=== PATIENT | female | born 1985 | race Caucasian/White ===

== ENCOUNTER 2021-01-09 07:55 | Emergency (ER) | payer OTHER, SELFPAY ==
[2021-01-09 08:43] VITALS: BP 128/69; PULSE 69; RESP 16; O2SAT 99; BMI 29.0
--- NOTE | 2021-01-09 08:59 | ED_ITS ---
HPI - Nausea/Vomiting/Diarrhea General Chief complaint: Nausea/Vomiting/Diarrhea Stated complaint: - vomiting Time Seen by Provider: 01/09/21 08:56 Source: patient Mode of arrival: ambulatory Limitations: no limitations History of Present Illness MD elicited complaint: nausea and vomiting Pertinent past history: other (+ preg at home, LMP 2 months ago) Onset (ago): week(s) (2) Description of vomiting: food contents Associated nausea: Yes Associated abdominal pain: No Severity: moderate Exacerbating factors: eating Relieving factors: none Context: other (+ test) Associated symptoms: denies other symptoms Related Data Previous Rx's Medication Instructions Recorded doxylamine succinate 25 mg tablet 25 mg PO BID PRN #60 tab 01/09/21 ondansetron 4 mg disintegrating 4 mg PO Q8H PRN #20 tab 01/09/21 tablet pyridoxine (vitamin B6) 25 mg 25 mg PO BID PRN #60 tab 01/09/21 tablet Allergies Allergy/AdvReac Type Severity Reaction Status Date / Time penicillin V Allergy Unknown Hives Verified 01/09/21 09:07 Review of Systems Review of Systems: Constitutional : No Weight loss, No Fever, No Chills ENT/Mouth : No sore throat, No Rhinorrhea Eyes: No Swelling, No Redness Cardiovascular : No Chest Pain, No SOB, NoEdema Respiratory : No Cough, No Sputum, No Wheezing Gastrointestinal : Positive Nausea, Positive Vomiting, no Diarrhea, no abdominal Pain, No Hematochezia, No Melena Genitourinary : No Dysuria, No Urinary Frequency, No Hematuria, No Urgency , no vag bleeding Musculoskeletal : No joint pain, No Myalgias, No Joint Swelling Skin : No Skin Lesions, No rash Neuro : No Weakness, No Numbness, No Dizziness, No Headache Psych : No Anxiety/Panic, No Depression Heme/Lymph: No Bruising, No Lymphadenopathy Endocrine : No Polyuria, No Polydipsia All other systems reviewed and are negative. Gastrointestinal: Gastrointestinal: Reports nausea PMFSH Past Medical History Attestation statement: The following information was validated with the patient. Medical History No known health problems Social History Social History (Updated 01/09/21 @ 09:30 by Josefa Olvera DO) Alcohol intake: unknown Patient Tobacco Use Status: Never used Tobacco Use of substances other than those prescribed or required for medical reasons: No Advance Directives: No Advance Directives Information Provided: No Patient : Yes Physical Exam Vital Signs: Vital Signs: Last Vital Signs Pulse 69 01/09/21 08:43 Resp 16 01/09/21 08:43 BP 128/69 01/09/21 08:43 Pulse Ox 99 01/09/21 08:43 Body Mass Index 29.0 Appearance: Alert. Oriented X3. No acute distress. Eyes: Pupils equal, round and reactive to light. ENT: Pharynx mild dry MM Neck: Normal inspection. Neck supple. CVS: Normal heart rate and rhythm. Pulses normal. Respiratory: No respiratory distress. Breath sounds normal. Abdomen: Soft and non-tender. Skin: Skin warm and dry. pale skin color. Normal skin turgor. Extremities: No lower extremity edema. No calf ttp Neuro: Oriented X 3. No motor deficit. No sensory deficit. Course Course Course Narrative: tolerated PO feels much better MDM - Nausea/Vomiting/Diarrhea MDM Narrative Medical decision making narrative: 35 yo female LMP 2 months ago pos test at home pos vomiting x 2 weeks - has not seen OB. At this time no OB complaints such as pain or bleeding. Will obtain labs, hydrate, IV anti emetics. Dispo per results and findings as well as PO trial Lab Data Result diagrams: 01/09/21 09:25 01/09/21 09:25 Labs: Lab Results 01/09/21 01/09/21 01/09/21 Range/Units 08:55 08:55 09:21 WBC (4.8-10.8) X10*3/uL RBC (4.20-5.50) X10*6/uL Hgb (12.0-16.0) g/dl Hct (37-47) % MCV (80-98) fL MCH (27.0-33.0) pg MCHC (31.0-35.0) g/dl RDW (11.0-16.0) % Plt Count (160-400) X10*3/uL MPV (9.4-12.3) fL Immature Gran % (Auto) (0.0-0.4) % Neut % (Auto) (45-73) % Lymph % (Auto) (20-40) % [place] % (Auto) (2-11) % Eos % (Auto) (0-4) % Baso % (Auto) (0-2) % Lymph # (Auto) (1.2-4.9) X10*3/uL [place] # (Auto) (0.1-1.2) X10*3/uL Eos # (Auto) (0.0-0.4) X10*3/uL Baso # (Auto) (0.0-0.2) X10*3/uL Abs Immat Gran (auto) (0.00-0.03) X10*3/uL Absolute Neuts (auto) (2.0-8.3) X10*3/uL Absolute Nucleated RBC (0.0-0.012) X10*3/uL Nucleated RBC % (auto) (0.0-0.2) /100WBC Sodium (135-145) mmol/L Potassium (3.3-5.1) mmol/L Chloride (96-108) mmol/L Carbon Dioxide (22-29) mmol/L Anion Gap (12-20) BUN (9-16) mg/dL Creatinine (0.5-1.4) mg/dL Estim Creat Clear Calc Estimated GFR Random Glucose (60-115) mg/dL Calcium (8.4-10.2) mg/dL Magnesium (1.6-2.6) mg/dL Total Bilirubin (0.0-1.0) mg/dL Direct Bilirubin (0.0-0.5) mg/dL AST (5-31) U/L ALT (0-31) U/L Alkaline Phosphatase (39-117) U/L Total Protein (6.5-8.0) g/dL Albumin (3.5-5.0) g/dL Lipase (8-78) U/L Beta HCG, Quant mIU/mL Urine Color YELLOW Urine Appearance CLOUDY Urine pH 6.0 (5.0-8.0) Ur Specific [place] >= 1.030 H (1.005-1.025) Urine Protein TRACE (NEG-TRACE) MG/DL Urine Glucose (UA) NEG (NEG) MG/DL Urine Ketones NEG (NEG) MG/DL Urine Blood TRACE (NEG) Urine Nitrite NEG (NEG) Ur Leukocyte Esterase NEG (NEG) Urine RBC 1-4 (0) /HPF Urine WBC 0-2 (0-4) /HPF Ur Squamous Epith Cells 3+ /LPF Urine Bacteria TRACE /LPF Urine Mucus 2+ /LPF Urine Test POSITIVE H (NEGATIVE) COVID-19 (MARY) Negative (Negative) COVID-19 Clin Com See Note 01/09/21 01/09/21 Range/Units 09:25 09:25 WBC 9.1 (4.8-10.8) X10*3/uL RBC 4.35 (4.20-5.50) X10*6/uL Hgb 12.8 (12.0-16.0) g/dl Hct 36.9 L (37-47) % MCV 84.8 (80-98) fL MCH 29.4 (27.0-33.0) pg MCHC 34.7 (31.0-35.0) g/dl RDW 13.6 (11.0-16.0) % Plt Count 193 (160-400) X10*3/uL MPV 10.6 (9.4-12.3) fL Immature Gran % (Auto) 0.2 (0.0-0.4) % Neut % (Auto) 74.3 H (45-73) % Lymph % (Auto) 18.7 L (20-40) % [place] % (Auto) 6.6 (2-11) % Eos % (Auto) 0.0 (0-4) % Baso % (Auto) 0.2 (0-2) % Lymph # (Auto) 1.7 (1.2-4.9) X10*3/uL [place] # (Auto) 0.6 (0.1-1.2) X10*3/uL Eos # (Auto) 0.0 (0.0-0.4) X10*3/uL Baso # (Auto) 0.0 (0.0-0.2) X10*3/uL Abs Immat Gran (auto) 0.02 (0.00-0.03) X10*3/uL Absolute Neuts (auto) 6.7 (2.0-8.3) X10*3/uL Absolute Nucleated RBC 0.000 (0.0-0.012) X10*3/uL Nucleated RBC % (auto) 0.0 (0.0-0.2) /100WBC Sodium 137 (135-145) mmol/L Potassium 4.0 (3.3-5.1) mmol/L Chloride 105 (96-108) mmol/L Carbon Dioxide 23 (22-29) mmol/L Anion Gap 13 (12-20) BUN 7 L (9-16) mg/dL Creatinine 0.68 (0.5-1.4) mg/dL Estim Creat Clear Calc 126.1 Estimated GFR > 60 Random Glucose 108 (60-115) mg/dL Calcium 10.2 (8.4-10.2) mg/dL Magnesium 1.9 (1.6-2.6) mg/dL Total Bilirubin 1.3 H (0.0-1.0) mg/dL Direct Bilirubin 0.4 (0.0-0.5) mg/dL AST 18 (5-31) U/L ALT 17 (0-31) U/L Alkaline Phosphatase 70 (39-117) U/L Total Protein 7.7 (6.5-8.0) g/dL Albumin 4.6 (3.5-5.0) g/dL Lipase 27 (8-78) U/L Beta HCG, Quant [id number] mIU/mL Urine Color Urine Appearance Urine pH (5.0-8.0) Ur Specific [place] (1.005-1.025) Urine Protein (NEG-TRACE) MG/DL Urine Glucose (UA) (NEG) MG/DL Urine Ketones (NEG) MG/DL Urine Blood (NEG) Urine Nitrite (NEG) Ur Leukocyte Esterase (NEG) Urine RBC (0) /HPF Urine WBC (0-4) /HPF Ur Squamous Epith Cells /LPF Urine Bacteria /LPF Urine Mucus /LPF Urine Test (NEGATIVE) COVID-19 (MARY) (Negative) COVID-19 Clin Com Discharge Plan Discharge Clinical Impression: Hyperemesis gravidarum Patient Disposition: Home, Self-Care Instructions: Hyperemesis Gravidarum (ED) Additional Instructions: return to ED for any worsening symptoms or concerns based off levels suspect you are around 6 weeks please call your OBGYN, take vitamins 1st line for nausea and vomiting is B6 and doxylamine then zofran then suppositories Prescriptions: New pyridoxine (vitamin B6) 25 mg tablet 25 mg PO BID PRN (Reason: nausea and vomiting) Qty: 60 RF: 0 doxylamine succinate 25 mg tablet 25 mg PO BID PRN (Reason: vomiting) Qty: 60 RF: 0 ondansetron 4 mg tablet,disintegrating 4 mg PO Q8H PRN (Reason: nausea and vomiting) Qty: 20 RF: 0 Stand Alone Forms: Work/School Release
[2021-01-09 09:05] LABS: Appearance Urine CLOUDY; Color Urine YELLOW; Glucose Urine UA NEG (NEG); Leukocyte Esterase Urine NEG (NEG); Nitrite Urine NEG (NEG); Specific Gravity - Urine >= 1.030 (1.005-1.025); UACC Culture Trigger NO; UPreg QC Valid YES; Urine Blood TRACE (NEG); Urine Ketones NEG (NEG); Urine Pregnancy POSITIVE (NEGATIVE); Urine Protein TRACE MG/DL (NEG-TRACE)
[2021-01-09 09:11] LABS: Bacteria Urine TRACE /LPF; Mucus Urine 2+ /LPF; Squamous Epithelial Cell Urine 3+ /LPF; WBC Urine 0-2 /HPF (0-4)
[2021-01-09 09:32] LABS: MANUAL DIFF FLAG NO
[2021-01-09 09:34] LABS: Basophils Percent Auto 0.2 % (0-2); Hematocrit 36.9 % (37-47); Hemoglobin 12.8 g/dl (12.0-16.0); Imm Gran Abs Auto 0.02 X10*3/uL (0.00-0.03); Imm Gran Pct Auto 0.2 % (0.0-0.4); Lymphocytes Absolute Auto 1.7 X10*3/uL (1.2-4.9); Lymphocytes Percent Auto 18.7 % (20-40); Mean Corpuscular HGB Conc 34.7 g/dl (31.0-35.0); Mean Corpuscular Hemoglobin 29.4 pg (27.0-33.0); Mean Corpuscular Volume 84.8 fL (80-98); Mean Platelet Volume 10.6 fL (9.4-12.3); Monocytes Absolute Auto 0.6 X10*3/uL (0.1-1.2); Monocytes Percent Auto 6.6 % (2-11); Neutrophils Absolute Auto 6.7 X10*3/uL (2.0-8.3); Neutrophils Percent Auto 74.3 % (45-73); Platelet Count 193 X10*3/uL (160-400); Red Blood Count 4.35 X10*6/uL (4.20-5.50); Red Cell Distribution Width 13.6 % (11.0-16.0); White Blood Count 9.1 X10*3/uL (4.8-10.8)
[2021-01-09] MEDS: Lactated Ringers 1,000 ML 999 ML IV (09:35)
[2021-01-09] MEDS: Metoclopramide HCl 10 MG/2 ML VIAL 5 MG IVPUSH (09:35)
[2021-01-09] MEDS: diphenhydrAMINE HCL 50 MG/ML VIAL 25 MG IVPUSH (09:36)
[2021-01-09 10:01] LABS: COVID-19 Test Negative (Negative)
[2021-01-09 10:10] LABS: Alanine Aminotransferase 17 U/L (0-31); Albumin Level 4.6 g/dL (3.5-5.0); Alkaline Phosphatase 70 U/L (39-117); Anion Gap 13 (12-20); Aspartate Amino Transferase 18 U/L (5-31); Bilirubin Direct 0.4 mg/dL (0.0-0.5); Bilirubin Total 1.3 mg/dL (0.0-1.0); Blood Urea Nitrogen 7 mg/dL (9-16); Calcium 10.2 mg/dL (8.4-10.2); Carbon Dioxide 23 mmol/L (22-29); Chloride 105 mmol/L (96-108); Creatinine Clr Calc Pharmacy 126.1; Estimated Glomerular Filt Rate > 60; Glucose Random 108 mg/dL (60-115); Lipase 27 U/L (8-78); Magnesium 1.9 mg/dL (1.6-2.6); Sodium 137 mmol/L (135-145); Total Protein 7.7 g/dL (6.5-8.0)
== END 2021-01-09 11:46 | disposition home or self-care (01) ==
PROVIDERS: Emergency Provider Emergency Medicine
DX: O21.0 Mild hyperemesis gravidarum (principal); Z3A.08 8 weeks gestation of pregnancy; Z79.899 Other long term (current) drug therapy; Z20.822 Contact with and (suspected) exposure to COVID-19
CPT/HCPCS: 36415; 80048; 80076; 81001; 81003; 81025; 83690; 83735; 84702; 85025; 87635; 96361; 96374; 96375; 99284; J1200; J2765

== ENCOUNTER 2021-01-10 13:39 | Emergency (ER) | payer OTHER, SELFPAY ==
--- NOTE | ~2021-01-10 | US_ITS ---
EXAMINATION: US OBSTETRICAL ULTRASOUND CLINICAL INFORMATION: Pain. Positive test. Quant suggests at least 7 weeks. LMP unknown. COMPARISON: None. TECHNIQUE: Ultrasound of the maternal pelvis is performed using transabdominal transducer. M-mode Doppler is also performed. FINDINGS: There is a single intrauterine gestational sac with embryo and cardiac activity. No subchorionic hemorrhage or hematoma demonstrated. Yolk sac not seen. HR: 155 beats per minute. CRL (crown rump length): 6.7 cm (13 weeks 1 day +/- 4 days). ARABELLA (estimated date of delivery): 07/17/2021 +/- 4 days. MATERNAL ADNEXA: The right maternal ovary is not visualized. The left maternal ovary measures 2.8 x 1.4 x 1.9 cm. No maternal pelvic ascites. No maternal pelvic mass demonstrated. US/US OB <= 14 weeks fetus IMPRESSION: 1. Single intrauterine gestation with ultrasound gestational age of 13 weeks 1 day +/- 4 days. 2. Estimated date of delivery is 07/17/2021 +/- 4 days. 3. No visible maternal adnexal mass or pelvic ascites. Right maternal ovary not visualized.
[2021-01-10 13:41] VITALS: BP 113/70; PULSE 84; RESP 18; TEMP 37; O2SAT 98; BMI 29.2
--- NOTE | 2021-01-10 14:30 | ED.NAVMDI ---
HPI - Nausea/Vomiting/Diarrhea General Chief complaint: Nausea/Vomiting/Diarrhea Stated complaint: vomiting, diarrhea Time Seen by Provider: 01/10/21 14:28 Source: patient Mode of arrival: ambulatory Limitations: no limitations History of Present Illness HPI Narrative: 35 yo female seen yesterday for n/v + test did not have abdominal pain yesterday comes back today states she tried all the medications they made her more nauseated and then she has had severe diarrhea all night no recent abx, now has lower abdominal pain too which is new MD elicited complaint: nausea, vomiting, diarrhea and abdominal pain Pertinent past history: other (+ test) Onset (ago): day(s) (started last night) Description of vomiting: watery Description of diarrhea: mucus and watery Associated nausea: Yes Associated abdominal pain: Yes Location of pain: suprapubic Radiation: diffuse Pain consistency: intermittent Severity: mild Quality: cramping Exacerbating factors: other (new medications) Relieving factors: none Context: new medication Associated symptoms: loss of appetite, malaise and nausea/vomiting Related Data Previous Rx's Medication Instructions Recorded doxylamine succinate 25 mg tablet 25 mg PO BID PRN #60 tab 01/09/21 ondansetron 4 mg disintegrating 4 mg PO Q8H PRN #20 tab 01/09/21 tablet pyridoxine (vitamin B6) 25 mg 25 mg PO BID PRN #60 tab 01/09/21 tablet metoclopramide HCl 10 mg tablet 10 mg PO Q6H PRN #30 tab 01/10/21 (Reglan) promethazine 25 mg rectal 25 mg SD Q6H PRN #12 ea 01/10/21 suppository Allergies Allergy/AdvReac Type Severity Reaction Status Date / Time penicillin V Allergy Unknown Hives Verified 01/10/21 13:40 Review of Systems Review of Systems: Constitutional : No Weight loss, No Fever, No Chills ENT/Mouth : No sore throat, No Rhinorrhea Eyes: No Swelling, No Redness Cardiovascular : No Chest Pain, No SOB, NoEdema Respiratory : No Cough, No Sputum, No Wheezing Gastrointestinal : Positive Nausea, Positive Vomiting, positive Diarrhea, positive abdominal Pain, No Hematochezia, No Melena Genitourinary : No Dysuria, No Urinary Frequency, No Hematuria, No Urgency Musculoskeletal : No joint pain, No Myalgias, No Joint Swelling Skin : No Skin Lesions, No rash Neuro : No Weakness, No Numbness, No Dizziness, No Headache Psych : No Anxiety/Panic, No Depression Heme/Lymph: No Bruising, No Lymphadenopathy Endocrine : No Polyuria, No Polydipsia All other systems reviewed and are negative. Gastrointestinal: Gastrointestinal: Reports nausea PMFSH Past Medical History Attestation statement: The following information was validated with the patient. Medical History No known health problems Social History Social History Alcohol intake: former Patient Tobacco Use Status: Never used Tobacco Use of substances other than those prescribed or required for medical reasons: No Advance Directives: No Advance Directives Information Provided: No Patient : Yes Physical Exam Vital Signs: Vital Signs: Last Vital Signs Temp 98 F 01/10/21 15:13 Pulse 75 01/10/21 15:13 Resp 18 01/10/21 15:13 BP 111/71 01/10/21 15:13 Pulse Ox 98 01/10/21 15:13 Body Mass Index 29.2 Appearance: Alert. Oriented X3. No acute distress. Eyes: Pupils equal, round and reactive to light. ENT: Pharynx normal. Neck: Normal inspection. Neck supple. CVS: Normal heart rate and rhythm. Pulses normal. Respiratory: No respiratory distress. Breath sounds normal. Abdomen: Soft and mild suprapubic ttp no rebound or guarding Skin: Skin warm and dry. Normal skin color. Normal skin turgor. Extremities: No lower extremity edema. No calf ttp Neuro: Oriented X 3. No motor deficit. No sensory deficit. Course Course Course Narrative: signed out pending improvement - feels much better - Dr. Reyes MDM - Nausea/Vomiting/Diarrhea MDM Narrative Medical decision making narrative: 35 yo female with new about 6 weeks based off labs and LMP 2 months ago comes back with persistent n/v as well as new diarrhea and lower abdominal pain after starting new B6/doxylamine/zofran - at this time labs, IVF, stool studies, anti emetics, US to evaluate dispo per results and findings Lab Data Result diagrams: 01/10/21 15:29 01/10/21 15:29 Labs: Lab Results 0901/10/21 01/10/21 Range/Units 15:29 15:29 15:29 WBC 9.2 (4.8-10.8) X10*3/uL RBC 4.17 L (4.20-5.50) X10*6/uL Hgb 12.3 (12.0-16.0) g/dl Hct 35.5 L (37-47) % MCV 85.1 (80-98) fL MCH 29.5 (27.0-33.0) pg MCHC 34.6 (31.0-35.0) g/dl RDW 13.7 (11.0-16.0) % Plt Count 188 (160-400) X10*3/uL MPV 10.7 (9.4-12.3) fL Immature Gran % (Auto) 0.3 (0.0-0.4) % Neut % (Auto) 74.0 H (45-73) % Lymph % (Auto) 18.4 L (20-40) % [place] % (Auto) 7.2 (2-11) % Eos % (Auto) 0.0 (0-4) % Baso % (Auto) 0.1 (0-2) % Lymph # (Auto) 1.7 (1.2-4.9) X10*3/uL [place] # (Auto) 0.7 (0.1-1.2) X10*3/uL Eos # (Auto) 0.0 (0.0-0.4) X10*3/uL Baso # (Auto) 0.0 (0.0-0.2) X10*3/uL Abs Immat Gran (auto) 0.03 (0.00-0.03) X10*3/uL Absolute Neuts (auto) 6.8 (2.0-8.3) X10*3/uL Absolute Nucleated RBC 0.000 (0.0-0.012) X10*3/uL Nucleated RBC % (auto) 0.0 (0.0-0.2) /100WBC Sodium 137 (135-145) mmol/L Potassium 3.6 (3.3-5.1) mmol/L Chloride 106 (96-108) mmol/L Carbon Dioxide 24 (22-29) mmol/L Anion Gap 11 L (12-20) BUN 7 L (9-16) mg/dL Creatinine 0.73 (0.5-1.4) mg/dL Estim Creat Clear Calc 118.1 Estimated GFR > 60 Random Glucose 103 (60-115) mg/dL Lactic Acid (0.5-2.0) mmol/L Calcium 9.5 D (8.4-10.2) mg/dL Magnesium 2.0 (1.6-2.6) mg/dL Total Bilirubin 1.2 H (0.0-1.0) mg/dL Direct Bilirubin 0.3 (0.0-0.5) mg/dL AST 20 (5-31) U/L ALT 14 (0-31) U/L Alkaline Phosphatase 67 (39-117) U/L Total Protein 7.2 (6.5-8.0) g/dL Albumin 4.2 (3.5-5.0) g/dL Lipase 52 (8-78) U/L 01/10/21 Range/Units 15:29 WBC (4.8-10.8) X10*3/uL RBC (4.20-5.50) X10*6/uL Hgb (12.0-16.0) g/dl Hct (37-47) % MCV (80-98) fL MCH (27.0-33.0) pg MCHC (31.0-35.0) g/dl RDW (11.0-16.0) % Plt Count (160-400) X10*3/uL MPV (9.4-12.3) fL Immature Gran % (Auto) (0.0-0.4) % Neut % (Auto) (45-73) % Lymph % (Auto) (20-40) % [place] % (Auto) (2-11) % Eos % (Auto) (0-4) % Baso % (Auto) (0-2) % Lymph # (Auto) (1.2-4.9) X10*3/uL [place] # (Auto) (0.1-1.2) X10*3/uL Eos # (Auto) (0.0-0.4) X10*3/uL Baso # (Auto) (0.0-0.2) X10*3/uL Abs Immat Gran (auto) (0.00-0.03) X10*3/uL Absolute Neuts (auto) (2.0-8.3) X10*3/uL Absolute Nucleated RBC (0.0-0.012) X10*3/uL Nucleated RBC % (auto) (0.0-0.2) /100WBC Sodium (135-145) mmol/L Potassium (3.3-5.1) mmol/L Chloride (96-108) mmol/L Carbon Dioxide (22-29) mmol/L Anion Gap (12-20) BUN (9-16) mg/dL Creatinine (0.5-1.4) mg/dL Estim Creat Clear Calc Estimated GFR Random Glucose (60-115) mg/dL Lactic Acid 1.0 (0.5-2.0) mmol/L Calcium (8.4-10.2) mg/dL Magnesium (1.6-2.6) mg/dL Total Bilirubin (0.0-1.0) mg/dL Direct Bilirubin (0.0-0.5) mg/dL AST (5-31) U/L ALT (0-31) U/L Alkaline Phosphatase (39-117) U/L Total Protein (6.5-8.0) g/dL Albumin (3.5-5.0) g/dL Lipase (8-78) U/L Discharge Plan Discharge Clinical Impression: Hyperemesis gravidarum, Diarrhea Instructions: Hyperemesis Gravidarum (ED), Acute Diarrhea (ED) Additional Instructions: return to ED for any worsening symptoms or concerns stop taking B6 pyridoxine, ondansetron, doxylamine avoid dairy for 3 days only take suppositories if the pills are not working Prescriptions: New metoclopramide HCl [Reglan] 10 mg tablet 10 mg PO Q6H PRN (Reason: nausea and vomiting) Qty: 30 RF: 0 promethazine 25 mg suppository 25 mg SD Q6H PRN (Reason: nausea and vomiting) Qty: 12 RF: 0 No Action pyridoxine (vitamin B6) 25 mg tablet 25 mg PO BID PRN (Reason: nausea and vomiting) Qty: 60 RF: 0 doxylamine succinate 25 mg tablet 25 mg PO BID PRN (Reason: vomiting) Qty: 60 RF: 0 ondansetron 4 mg tablet,disintegrating 4 mg PO Q8H PRN (Reason: nausea and vomiting) Qty: 20 RF: 0 Stand Alone Forms: Work/School Release
[2021-01-10 15:13] VITALS: BP 111/71; PULSE 75; RESP 18; TEMP 36.6; O2SAT 98
[2021-01-10] MEDS: diphenhydrAMINE HCL 50 MG/ML VIAL 25 MG IVPUSH (15:29)
[2021-01-10] MEDS: Lactated Ringers 1,000 ML 999 ML IV (15:30)
[2021-01-10 15:33] LABS: MANUAL DIFF FLAG NO
[2021-01-10] MEDS: Metoclopramide HCl 10 MG/2 ML VIAL IVPUSH (15:33)
[2021-01-10 15:34] LABS: Basophils Percent Auto 0.1 % (0-2); Hematocrit 35.5 % (37-47); Hemoglobin 12.3 g/dl (12.0-16.0); Imm Gran Abs Auto 0.03 X10*3/uL (0.00-0.03); Imm Gran Pct Auto 0.3 % (0.0-0.4); Lymphocytes Absolute Auto 1.7 X10*3/uL (1.2-4.9); Lymphocytes Percent Auto 18.4 % (20-40); Mean Corpuscular HGB Conc 34.6 g/dl (31.0-35.0); Mean Corpuscular Hemoglobin 29.5 pg (27.0-33.0); Mean Corpuscular Volume 85.1 fL (80-98); Mean Platelet Volume 10.7 fL (9.4-12.3); Monocytes Absolute Auto 0.7 X10*3/uL (0.1-1.2); Monocytes Percent Auto 7.2 % (2-11); Neutrophils Absolute Auto 6.8 X10*3/uL (2.0-8.3); Platelet Count 188 X10*3/uL (160-400); Red Blood Count 4.17 X10*6/uL (4.20-5.50); Red Cell Distribution Width 13.7 % (11.0-16.0); White Blood Count 9.2 X10*3/uL (4.8-10.8)
[2021-01-10 15:50] LABS: Anion Gap 11 (12-20); Blood Urea Nitrogen 7 mg/dL (9-16); Calcium 9.5 mg/dL (8.4-10.2); Carbon Dioxide 24 mmol/L (22-29); Chloride 106 mmol/L (96-108); Creatinine Clr Calc Pharmacy 118.1; Estimated Glomerular Filt Rate > 60; Glucose Random 103 mg/dL (60-115); Potassium 3.6 mmol/L (3.3-5.1); Sodium 137 mmol/L (135-145)
[2021-01-10 15:59] LABS: Alanine Aminotransferase 14 U/L (0-31); Albumin Level 4.2 g/dL (3.5-5.0); Alkaline Phosphatase 67 U/L (39-117); Aspartate Amino Transferase 20 U/L (5-31); Bilirubin Direct 0.3 mg/dL (0.0-0.5); Bilirubin Total 1.2 mg/dL (0.0-1.0); Lipase 52 U/L (8-78); Total Protein 7.2 g/dL (6.5-8.0)
[2021-01-10 16:25] VITALS: BP 106/62; PULSE 70; RESP 16; TEMP 36.8; O2SAT 100
[2021-01-10 16:34] LABS: Appearance Urine HAZY; Color Urine YELLOW; Glucose Urine UA NEG (NEG); Leukocyte Esterase Urine NEG (NEG); Nitrite Urine NEG (NEG); Specific Gravity - Urine >= 1.030 (1.005-1.025); UACC Culture Trigger NO; Urine Blood TRACE (NEG); Urine Ketones 5 MG/DL (NEG); Urine Protein TRACE MG/DL (NEG-TRACE)
[2021-01-10 16:43] LABS: Bacteria Urine 1+ /LPF; Calcium Oxalate Crystals Urine TRACE /LPF; Squamous Epithelial Cell Urine 1+ /LPF; WBC Urine 0 /HPF (0-4)
[2021-01-10 16:44] LABS: Mucus Urine 1+ /LPF
== END 2021-01-10 17:12 | disposition home or self-care (01) ==
PROVIDERS: Emergency Medicine; Emergency Provider Emergency Medicine Emergency Medical Services
DX: O21.0 Mild hyperemesis gravidarum (principal); R19.7 Diarrhea, unspecified; Z3A.13 13 weeks gestation of pregnancy
CPT/HCPCS: 36415; 76801; 80048; 80076; 81001; 83605; 83690; 83735; 85025; 96361; 96374; 96375; 99284; J1200; J2765

== ENCOUNTER → 2021-01-16 09:59 | Outpatient (BNVA) | payer OTHER, SELFPAY | PROVIDERS: Visit Provider Obstetrics & Gynecology | DX: O09.521 Supervision of elderly multigravida, first trimester (principal); Z3A.14 14 weeks gestation of pregnancy | CPT/HCPCS: 99212 ==

== ENCOUNTER 2021-01-18 10:39 | Outpatient (REF) | payer OTHER, SELFPAY ==
--- NOTE | ~2021-01-18 | US_ITS ---
EXAMINATION: OBSTETRICAL ULTRASOUND, FIRST TRIMESTER HISTORY: A 35-year-old at 14 weeks of gestation AMA NT screening COMPARISON: 01/10/2021 TECHNIQUE: Real time transabdominal imaging with color and M-mode Doppler. FINDINGS: A single, live IUP CRL of 82.1 mm c/w 14.2wks is noted. Heart Rate: 160 beats per minute. Normal yolk sac seen. NT was 0.98.mm. NB Present The embryo appears sonographically wnl for this GA. Both maternal ovaries are seen and appear normal. GESTATIONAL AGE: 1. Established GA: 14.2 wks 2. GA from [facility]: 14.2 wks ESTIMATED DATE OF DELIVERY: 1. Established ARABELLA: 07/17/2021 2. ARABELLA from [facility]: 07/17/2021 US/US OB 1T nuc measure IMPRESSION: 1. A single live IUP 2. Size equals dates 3. NT of 0.98 mm MFM Consultation: I reviewed the ultrasound findings along with significance of NT measurement. The NT of less than 3mm is generally reassuring. However, the sensitivity for T21 detection is only 60%. I reviewed the availability of serum aneuploidy screening which includes cell-free DNA and placental protein based tests. I discussed the sensitivity, false-positive rate, and other limitations associated with each test. I also reviewed the availability of invasive diagnostic tests that are associated small but definite risk of miscarriage. We also reviewed the differences between screening tests and diagnostic tests. After our discussion, she opted for the First trimester screening that is based on cell-free DNA or non-invasive testing (NIPT). The result will be faxed to your office in approximately 7 days. A follow up at 18 weeks for survey has been scheduled. Thank you very much for this referral. Total time 30 minutes. The time spent was devoted to counseling the patient about the disease and diagnosis, coordinating care including reviewing her records, pertinent lab data and studies, as well as discussing diagnostic evaluation and workup, plan therapeutic interventions and future disposition of care. This includes any additional research needed to obtain further information in formulating the plan of care of this patient. This note was generated with a voice recognition program. Please excuse any errors which may have been overlooked during my review of this note. Sometimes these errors may affect the content or meaning of a given sentence.
== END 2021-01-18 10:40 | disposition home or self-care (01) ==
LOC: HO.US 10:39
PROVIDERS: Visit Provider Obstetrics & Gynecology
DX: O09.512 Supervision of elderly primigravida, second trimester (principal)
CPT/HCPCS: 76813

== ENCOUNTER → 2021-01-25 13:58 | Outpatient (BNVA) | payer OTHER, SELFPAY | PROVIDERS: Visit Provider Obstetrics & Gynecology | DX: O99.342 Other mental disorders complicating pregnancy, second trimester (principal); F41.8 Other specified anxiety disorders; Z3A.15 15 weeks gestation of pregnancy | CPT/HCPCS: 99212 ==

== ENCOUNTER 2021-02-18 13:43 | Outpatient (REF) | payer OTHER, SELFPAY ==
[2021-02-19 02:33] LABS: CT PCR NOT DETECTED (Not Detect.); NG PCR NOT DETECTED (Not Detect.)
[2021-02-19 09:25] LABS: BV Int Neg Control Negative (Negative); BV Int Pos Control Positive (Positive)
[2021-02-20 15:51] LABS: HPV mRNA E6/E7 rflx Not Detected (Not Detected)
== END 2021-02-18 13:44 | disposition home or self-care (01) ==
LOC: HO.LAB 13:43
PROVIDERS: Visit Provider Advanced Practice Midwife
DX: O09.522 Supervision of elderly multigravida, second trimester (principal); O99.342 Other mental disorders complicating pregnancy, second trimester; O09.292 Supervision of pregnancy with other poor reproductive or obstetric history, second trimester; O26.892 Other specified pregnancy related conditions, second trimester; N89.8 Other specified noninflammatory disorders of vagina; F32.A Depression, unspecified; Z3A.18 18 weeks gestation of pregnancy; Z20.2 Contact with and (suspected) exposure to infections with a predominantly sexual mode of transmission
CPT/HCPCS: 81003; 87480; 87491; 87510; 87591; 87624; 87660; 88142; 99212

== ENCOUNTER 2021-02-22 12:59 | Outpatient (REF) | payer OTHER, SELFPAY ==
--- NOTE | ~2021-02-22 | US_ITS ---
EXAMINATION: US OBSTETRICAL CLINICAL INFORMATION: 35-year-old at the 19.2 weeks of gestation Screening for anomaly A COMPARISON: 01/18/2021 TECHNIQUE: Real-time transabdominal ultrasound was performed using C1-5 megahertz transducer. FINDINGS: A single, active, fetus is seen in vertex presentation. The placenta is posterior without previa, and the amniotic fluid volume is wnl. MEASUREMENTS: 1. Biparietal Diameter: 4.0 cm; 19.2 wks 2. Occipital Frontal Diameter: 5.76 cm 3. Head Circumference: 16.2 cm; 19.0 wks 4. Abdominal Circumference: 14.1 cm; 19.4 wks 5. Femur Length: 3.1 cm; 19.5 wks 6. Humerus Length: 2.85 cm; 19.2 wks 7. Tibia Length: 0.5 cm; 18.6 wks 8. Ulna Length: 2.7 cm; 20.0 wks 9. Lateral ventricle: 0.6 cm 10. Cerebellum: 2.1 cm; 21.1 wks 11. Cisterna Magna: 0.35 cm 12. Nuchal Fold: 2.65 mm 13. Heart Rate: 138 beats per minute Rt ovary: Unable to visualize Lt ovary: normal Cervical length 3.2 cm on T/A. GESTATIONAL AGE: 1. Established GA: 19.2 wks 2. GA from [facility]: 19.1 wks ESTIMATED DATE OF DELIVERY: 1. Established ARABELLA: 07/17/2021 2. ARABELLA from [facility]: 07/18/2021 ANATOMY: The visualized anatomy includes but not limited to: 1. Cranium: Normal 2. Intracranial anatomy: cavum septum pellucidi, lateral ventricles, choroid plexus, cerebellum, posterior fossa, third and fourth ventricles. 3. face: orbits, lip/palate, profile, nasal bone 4. Heart: four-chamber view of the heart, ventricular septum, foramen ovale, pulmonary vein, left and right outflow tracts, three-vessel view, 3 vessel trachea view, aortic and ductal arches, situs.. 5. Diaphragm: Normal 6. Abdominal wall: Normal 7. Cord Insertion: Normal 8. Spine: Cervical, thoracic, lumbar, sacral. 9. Stomach: Normal size and shape 10. Right Kidney: Normal 11. Left Kidney: Normal 12. 3 vessel cord: Normal 13. Upper extremity: Open hands, fifth digit. 14. Lower extremity: Tibia, fibula, bilateral feet. 15. Bladder: Normal 16. Genitalia: Female, patient aware US/US OB /maternal detail IMPRESSION: 1. Single, living, intrauterine with appropriate biometry. 2. Normal survey DISCUSSION: I reviewed today's ultrasound findings. We discussed the limitations of ultrasound in diagnosing aneuploidy and other congenital abnormalities. I reviewed the differences between screening test and diagnostic test. Amniocentesis was discussed and declined. She was informed that the baseline incidence of congenital abnormalities is approximately 3-5%. Not all these conditions are diagnosable in utero. RECOMMENDATIONS: 1. Follow-up when necessary Thank you for allowing me to participate in her care. Total time 30 minutes. The time spent was devoted to counseling the patient about the disease and diagnosis, coordinating care including reviewing her records, pertinent lab data and studies, as well as discussing diagnostic evaluation and workup, plan therapeutic interventions and future disposition of care. This includes any additional research needed to obtain further information in formulating the plan of care of this patient. This note was generated with a voice recognition program. Please excuse any errors which may have been overlooked during my review of this note. Sometimes these errors may affect the content or meaning of a given sentence.
[2021-02-22 15:23] LABS: Alanine Aminotransferase 11 U/L (0-31); Aspartate Amino Transferase 14 U/L (5-31); Blood Urea Nitrogen 9 mg/dL (9-16)
[2021-02-22 15:46] LABS: Creatinine Urine 114.49 mg/dL; Total Protein Urine Random < 7 mg/dL (<12)
== END 2021-02-22 13:00 | disposition home or self-care (01) ==
LOC: HO.US 12:59
PROVIDERS: Advanced Practice Midwife; Visit Provider Obstetrics & Gynecology
DX: Z36.89 Encounter for other specified antenatal screening (principal); O09.522 Supervision of elderly multigravida, second trimester; O09.292 Supervision of pregnancy with other poor reproductive or obstetric history, second trimester; Z3A.19 19 weeks gestation of pregnancy
CPT/HCPCS: 36415; 76811; 84156; 84450; 84460; 84520

== ENCOUNTER 2021-03-14 11:34 | Outpatient (REF) | payer OTHER, SELFPAY ==
[2021-03-14 13:16] LABS: Barbiturates, Urine Not Detected (Not Detect); Benzodiazepines Screen Urine Not Detected (Not Detect); Cannabinoid Screen Urine Not Detected (Not Detect); Cocaine Screen Urine Not Detected (Not Detect); Fentanyl, urine Not Detected (Not Detect); Opiate Screen Urine Not Detected (Not Detect); Phencyclidine Screen Urine Not Detected (Not Detect)
[2021-03-14 13:19] LABS: Amphetamine Screen Urine Not Detected (Not Detect)
[2021-03-14 13:28] LABS: Hematocrit 31.8 % (37.0-47.0); Mean Corpuscular HGB Conc 34.6 g/dl (31.0-35.0); Mean Corpuscular Hemoglobin 31.8 pg (27.0-33.0); Mean Corpuscular Volume 91.9 fL (80.0-98.0); Platelet Count 179 X10*3/uL (160-400); Red Blood Count 3.46 X10*6/uL (4.20-5.50); Red Cell Distribution Width 15.4 % (11.0-16.0); White Blood Count 9.1 X10*3/uL (4.8-10.8)
[2021-03-14 13:41] LABS: Glucose 1 Hour PP 50gm Dose 158 mg/dL (60-140)
[2021-03-15 08:36] LABS: Syphilis Screen Nonreactive (Nonreactive)
[2021-03-15 08:42] LABS: Rubella IgG Antibody 3.61 Index
[2021-03-15 09:00] LABS: HBsAGNum1 0.16 S/CO (0.00-0.99); Hepatitis B Surface Antigen Negative (Negative); ~HepC Num1 0.07 S/CO (0.00-0.79); ~Hepatitis C Antibody Nonreactive (Nonreactive)
[2021-03-15 09:23] LABS: HIV AB/AG Nonreactive (Nonreactive); HIV Num 1 0.11 S/CO (0.00-0.99)
== END 2021-03-14 11:35 | disposition home or self-care (01) ==
LOC: HO.LAB 11:34
PROVIDERS: Visit Provider Obstetrics & Gynecology
DX: O09.529 Supervision of elderly multigravida, unspecified trimester (principal); O99.810 Abnormal glucose complicating pregnancy
CPT/HCPCS: 80307; 85027; 86762; 86780; 86787; 86803; 86850; 86900; 86901; 87086; 87340; 87389

== ENCOUNTER → 2021-03-18 13:06 | Outpatient (BNVA) | payer OTHER, SELFPAY | PROVIDERS: Visit Provider Advanced Practice Midwife | DX: O09.522 Supervision of elderly multigravida, second trimester (principal); O09.292 Supervision of pregnancy with other poor reproductive or obstetric history, second trimester; O99.810 Abnormal glucose complicating pregnancy; R73.09 Other abnormal glucose; O99.212 Obesity complicating pregnancy, second trimester; E66.9 Obesity, unspecified; Z3A.22 22 weeks gestation of pregnancy | CPT/HCPCS: 81003; 99212 ==

== ENCOUNTER 2021-03-19 10:44 | Outpatient (REF) | payer OTHER, SELFPAY ==
[2021-03-19 11:50] LABS: Glucose Fasting 94 mg/dL (60-99)
[2021-03-19 13:03] LABS: Glucose 1 Hour 163 mg/dL
[2021-03-19 13:44] LABS: Glucose 2 Hour 108 mg/dL
[2021-03-19 15:04] LABS: Glucose 3 Hour 57 mg/dL
== END 2021-03-19 10:45 | disposition home or self-care (01) ==
LOC: HO.LAB 10:44
PROVIDERS: Visit Provider Obstetrics & Gynecology
DX: O99.810 Abnormal glucose complicating pregnancy (principal)
CPT/HCPCS: 36415; 82951

== ENCOUNTER 2021-04-02 13:59 | Outpatient (REF) | payer OTHER, SELFPAY ==
[2021-04-03 05:53] LABS: CT PCR NOT DETECTED (Not Detect.); NG PCR NOT DETECTED (Not Detect.)
[2021-04-03 10:53] LABS: BV Int Neg Control Negative (Negative); BV Int Pos Control Positive (Positive)
== END 2021-04-02 14:00 | disposition home or self-care (01) ==
LOC: HO.LAB 13:59
PROVIDERS: Visit Provider Advanced Practice Midwife
DX: O26.852 Spotting complicating pregnancy, second trimester (principal); O26.892 Other specified pregnancy related conditions, second trimester; N89.8 Other specified noninflammatory disorders of vagina; Z3A.27 27 weeks gestation of pregnancy
CPT/HCPCS: 81003; 87480; 87491; 87510; 87591; 87660; 90686; 99212

== ENCOUNTER 2021-04-11 15:14 | Emergency (ER) | payer OTHER, SELFPAY ==
[2021-04-11 15:44] VITALS: BP 129/60; PULSE 95; RESP 20; TEMP 36.2; O2SAT 97; BMI 36.3
--- NOTE | 2021-04-11 18:57 | ED_ITS ---
HPI - General Adult General Chief complaint: General Medical Stated complaint: runny nose,sore throat 26 wks Time Seen by Provider: 04/11/21 18:57 Source: patient Mode of arrival: ambulatory Limitations: no limitations History of Present Illness HPI narrative: Patient presents to the ED fo Runny nose and wants medication for runny nose. patient is 24 pregnan and was informed by phamarcist could not take robutussin. patient wants mediction for runny nose. Patient denies any chest pain, shortness of breath, coughing, fever, chills, abdominal pain, vaginal bleeding. Patient states she is vaccinated against COVID. Related Data Previous Rx's Medication Instructions Recorded vitamins with calcium 1 tab PO DAILY 30 Days #30 tab 01/17/21 no.72-iron 29 mg-folic acid 1 mg tablet ( Plus) aspirin 81 mg chewable tablet 162 mg PO DAILY 30 Days #60 tab 01/25/21 ferrous sulfate 325 mg (65 mg 325 mg PO DAILY 30 Days #30 tab 03/14/21 iron) tablet,delayed release Allergies Allergy/AdvReac Type Severity Reaction Status Date / Time penicillin V Allergy Unknown Hives Verified 04/02/21 14:20 Review of Systems Review of Systems: Yes all other systems are reviewed and are negative Constitutional: Constitutional: Reports as per HPI and Reports no additional constitutional complaints Eyes: Eyes: Reports as per HPI and Reports no additional eye complaints ENT: Reports system reviewed and no additional complaints, except as documented, Reports as per HPI and Reports nasal congestion Cardiovascular: Cardiovascular: Reports as per HPI and Reports no additional cardiovascular complaints Respiratory: Respiratory: Reports as per HPI and Reports no additional respiratory complaints Gastrointestinal: Gastrointestinal: Reports as per HPI and Reports no additional gastrointestinal complaints Genitourinary: Genitourinary: Reports no additional female genitourinary complaints and Reports as per HPI Musculoskeletal: Musculoskeletal: Reports no additional musculoskeletal complaints and Reports as per HPI Neurologic: Reports system reviewed and no additional complaints, except as documented and Reports as per HPI Psychiatric: Psychiatric: Reports no additional psychiatric complaints and Reports as per HPI PMF Past Medical History Medical History (Updated 04/11/21 @ 20:23 by BEVERLY Garcia) COVID-19 vaccine administered Depression with anxiety History of pre-eclampsia in prior , currently No known health problems Obesity (BMI 30.0-34.9) Family History Family History Maternal Grandmother Breast CA Brother Murder, Onset Age: 30 Social History Social History Alcohol intake: former Patient Tobacco Use Status: Never used Tobacco Substance Use Type: Marijuana Trauma History: Pts brother was murdered. Advance Directives: No Advance Directives Information Provided: No Physical Exam Vital Signs: Vital Signs: Last Vital Signs Temp 98.3 F 04/11/21 20:21 Pulse 94 04/11/21 20:21 Resp 18 04/11/21 20:21 BP 105/62 04/11/21 20:21 Pulse Ox 97 04/11/21 20:21 BMI result Body Mass Index 36.3 Const: General: cooperative, healthy appearing, comfortable, no acute distress, well developed, alert and awake HENMT: Head: Yes normal to inspection, Yes No palpable skull fracture present, Yes normocephalic, Yes atraumatic and No abrasion Eyes: General: appearance normal, both eyes and all related structures Neck: Neck: Yes normal visual inspection, Yes full ROM, Yes no lymphadenopathy, Yes no meningeal signs, Yes trachea midline, Yes supple, No anterior neck swelling and No tender Chest: Chest palpation & inspection: normal inspection of the chest and normal palpation of entire chest wall Resp: Effort & Inspection: normal respiratory effort and able to speak in complete sentences Auscultation: clear to auscultation bilaterally Cardio: Jugular venous distension: no JVD Heart sounds: S1 normal heart sound present and S2 normal heart sound present GI: Inspection: Yes normal to inspection and No abdominal wall ecchymosis Palpation (GI): Soft to palpation, not firm, nontender, no guarding and not rigid : General: No CVA tenderness and Yes no CVA tenderness Back/Spine/Pelvis: Back: no CVA tenderness, No CVA tenderness and No back tenderness Skin: General skin exam: no rashes or lesions noted and elasticity normal Neuro: General: gait normal, tone normal, no meningeal signs and CN's II-XI intact bilaterally Cranial nerves: Yes CN's II-XII intact bilaterally Extrem: General: Yes normal to inspection and Yes full ROM Psych: Appearance: grossly normal, well kempt and not disheveled Course Course Course Narrative: COVID swab ordered. Reevaluation(s) Reevaluation #1: Patient positive COVID. heart rate 154. Patient educat ed on signs of COVID respiratory distress and told to come to the ED if she has them been. Patient informed we do not have monitoring OBGYN floor so she should follow-up at week at [facility] at her earliest convenience preferably tonight for monitoring although she has no sanitation worker complaints. Patient states she will contact with her OBGYN at [facility] tomorrow. Patient informed only safe medication Tylenol Time: 20:20 Medical Decision Making MDM Narrative Medical decision making narrative: COVID Lab Data Labs: Lab Results 04/11/21 Range/Units 19:46 COVID-19 (MARY) Positive A (Negative) COVID-19 Clin Com See Note Discharge Plan Discharge Clinical Impression: COVID Patient Disposition: Home, Self-Care Instructions: COVID-19 (Coronavirus Disease 2019) (ED) Additional Instructions: You are positive for COVID-19. Return to the ED immediately for any chest pain, shortness of breath, weakness, dizziness, leg pain, calf pain, vaginal bleeding, abdominal pain, or any other concerning symptoms. For monitoring you can go to [facility] at [address] [place] [address]. Please contact your OBGYN for follow-up. Prescriptions: No Action Plus 29 mg iron- 1 mg tablet 1 tab PO DAILY 30 Days Qty: 30 RF: 11 ferrous sulfate 325 mg (65 mg iron) tablet,delayed release (DR/EC) 325 mg PO DAILY 30 Days Qty: 30 RF: 3 aspirin 81 mg tablet,chewable 162 mg PO DAILY 30 Days Qty: 60 RF: 3 Interventions: ED Discharge Assessment Last Done: 04/11/21 20:33 Discharge Date/Time: 04/11/21 20:36 Print Language: Czech
[2021-04-11 20:09] LABS: COVID-19 Test Positive (Negative)
[2021-04-11 20:21] VITALS: BP 105/62; PULSE 94; RESP 18; TEMP 36.8; O2SAT 97
== END 2021-04-11 20:36 | disposition home or self-care (01) ==
PROVIDERS: Physician Assistant; Emergency Provider Emergency Medicine
DX: O98.512 Other viral diseases complicating pregnancy, second trimester (principal); U07.1 COVID-19; Z3A.26 26 weeks gestation of pregnancy
CPT/HCPCS: 36415; 87635; 99283; 99284

== ENCOUNTER → 2021-05-03 13:38 | Outpatient (BNVA) | payer OTHER, SELFPAY | PROVIDERS: Visit Provider Advanced Practice Midwife | DX: O09.523 Supervision of elderly multigravida, third trimester (principal); Z13.31 Encounter for screening for depression; Z3A.29 29 weeks gestation of pregnancy | CPT/HCPCS: 99212 ==

== ENCOUNTER 2021-05-17 08:17 | Outpatient (REF) | payer OTHER, SELFPAY ==
[2021-05-17 10:33] LABS: Mean Corpuscular HGB Conc 33.3 g/dl (31.0-35.0); Mean Corpuscular Volume 95.9 fL (80.0-98.0); Mean Platelet Volume 10.8 fL (9.4-12.3); Platelet Count 175 X10*3/uL (160-400); Red Blood Count 3.44 X10*6/uL (4.20-5.50); Red Cell Distribution Width 14.3 % (11.0-16.0); White Blood Count 9.9 X10*3/uL (4.8-10.8)
[2021-05-17 11:03] LABS: Glucose 1 Hour PP 50gm Dose 125 mg/dL (60-140)
[2021-05-17 12:03] LABS: Syphilis Screen Nonreactive (Nonreactive)
== END 2021-05-17 08:18 | disposition home or self-care (01) ==
LOC: HO.LAB 08:17
PROVIDERS: Visit Provider Advanced Practice Midwife
DX: Z23 Encounter for immunization (principal); O09.523 Supervision of elderly multigravida, third trimester; Z3A.31 31 weeks gestation of pregnancy
CPT/HCPCS: 36415; 85027; 86780; 90471; 90715; 99212

== ENCOUNTER 2021-05-24 13:29 | Outpatient (REF) | payer OTHER, SELFPAY ==
--- NOTE | ~2021-05-24 | US_ITS ---
EXAMINATION: OBSTETRICAL ULTRASOUND, Follow up HISTORY: 36-year-old 32.2 weeks of gestation AMA Size date discrepancy COMPARISON: 02/22/2021 TECHNIQUE: Real time transabdominal imaging with color and M-mode Doppler. PRESENTATION: Complete breech PLACENTA LOCATION: Anterior, without previa AMNIOTIC FLUID: Maximum vertical pocket: 5.3 cm MEASUREMENTS: 1. Biparietal Diameter: 7.9 cm; 31.4 wks 2. Head Circumference: 29.3 cm; 32.3 wks 3. Abdominal Circumference: 27.9 cm; 32.1 wks 4. Femur Length: 6.1 cm; 32.0 wks 5. Heart Rate: 149 beats per minute WEIGHT: EFW: 1879 grams (4 lbs 2 oz) -- 34 %. BIOPHYSICAL PROFILE: Motion: 2 Tone: 2 Breathin Amniotic Fluid: 2 Total score: 8/8 GESTATIONAL AGE: 1. Established GA: 32.1 wks 2. GA from AUA: 32.1 wks ESTIMATED DATE OF DELIVERY: 1. Established ARABELLA: 07/18/2021 2. ARABELLA from AUA: 07/18/2021 US/US OB follow up IMPRESSION: 1. A single active fetus is in complete breech presentation 2. Size equals dates 3. Reassuring biophysical profile I discussed the approximate management of breech presentation. If the fetus does not vert, delivery is recommended at approximately 39 weeks of gestation. The success rate of external version is approximately 50%. If interested, this should be scheduled on or near the labor and delivery at approximately 38-39 weeks of gestation. Thank you very much for this referral. Total time 30 minutes. The time spent was devoted to counseling the patient about the disease and diagnosis, coordinating care including reviewing her records, pertinent lab data and studies, as well as discussing diagnostic evaluation and workup, plan therapeutic interventions and future disposition of care. This includes any additional research needed to obtain further information in formulating the plan of care of this patient. This note was generated with a voice recognition program. Please excuse any errors which may have been overlooked during my review of this note. Sometimes these errors may affect the content or meaning of a given sentence.
== END 2021-05-24 13:30 | disposition home or self-care (01) ==
LOC: HO.US 13:29
PROVIDERS: Visit Provider Advanced Practice Midwife
DX: O09.513 Supervision of elderly primigravida, third trimester (principal); O36.5930 Maternal care for other known or suspected poor fetal growth, third trimester, not applicable or unspecified; O32.1XX0 Maternal care for breech presentation, not applicable or unspecified; Z3A.32 32 weeks gestation of pregnancy
CPT/HCPCS: 76816

== ENCOUNTER → 2021-05-31 08:45 | Outpatient (BNVA) | payer OTHER, SELFPAY | PROVIDERS: Visit Provider Advanced Practice Midwife | DX: O32.1XX0 Maternal care for breech presentation, not applicable or unspecified (principal); O09.523 Supervision of elderly multigravida, third trimester; O99.213 Obesity complicating pregnancy, third trimester; O09.293 Supervision of pregnancy with other poor reproductive or obstetric history, third trimester; Z3A.33 33 weeks gestation of pregnancy | CPT/HCPCS: 81003; 99212 ==

== ENCOUNTER 2023-03-04 15:29 | Outpatient (AMB) | payer OTHER, SELFPAY ==
--- NOTE | 2023-03-04 15:59 | AM.OFFWIN_ITS ---
Intake Vital Signs 03/04/23 16:00 Height 5 ft 7 in Weight 231 lb BMI 36.2 BP 110/72 Blood Pressure Location Lt brachial Position Sitting Pulse 76 Pulse Source Pulse Oximeter Temp 97.9 F Temp Source Temporal Artery Scan Pulse Oximetry (%) 100 Intake Visit Reasons: EP, School form Intake Note: pt is here for school form for immunization to be filled out Patient Tobacco Use Status: Never used Tobacco Allergies penicillin V Allergy (Unknown, Verified 03/04/23 16:01) Hives Medication List - Last Reconciled 03/08/23 by Miguel Angel Chirinos MD No Known Home Meds Do you need a note to return to daycare/school/sports/work: Yes HPI EP, School form HPI Details Patient presents to the office requesting a school physical. [facility] Medical History COVID-19 vaccine administered Depression with anxiety History of pre-eclampsia in prior , currently No known health problems Obesity (BMI 30.0-34.9) Small for dates affecting management of mother Family History Maternal Grandmother Breast CA Brother Murder, Onset Age: 30 Social History Alcohol intake: former Patient Tobacco Use Status: Never used Tobacco Substance Use Type: Marijuana Trauma History: Pts brother was murdered. Female Reproductive History Menstrual Age of Menarche: 10 Physical Exam Vital Signs: Last Vital Signs Temp 97.9 F 03/04/23 16:00 Pulse 76 03/04/23 16:00 BP 110/72 03/04/23 16:00 Pulse Ox 100 03/04/23 16:00 BMI result Body Mass Index 36.2 Const General: cooperative and healthy appearing Nutritional Appearance: well nourished Orientation/consciousness: patient oriented x3 Limitations: no limitations HEENT Head: Yes normal to inspection Eyes General: appearance normal, both eyes and all related structures Neck Neck: Yes normal visual inspection Chest Chest palpation & inspection: normal palpation of entire chest wall Resp Effort & Inspection: normal respiratory effort Neuro General: patient oriented x3 Assessment & Plan Assessment & Plan (1) School physical exam: Code(s): Z02.0 - Encounter for examination for admission to educational institution Plan: Form to be completed after blood work results are available. Orders: Orders T Spot TB 03/05/23 Z02.0 - Encounter for examination for admission to educational institution, Z11.9 - Encounter for screening for infectious and parasitic diseases, unspecified Varicella IgG Antibody 03/05/23 Z11.9 - Encounter for screening for infectious and parasitic diseases, unspecified Rubeola IgG (Measles) 03/05/23 Z11.9 - Encounter for screening for infectious and parasitic diseases, unspecified Rubella IgG Antibody 03/05/23 Z11.9 - Encounter for screening for infectious and parasitic diseases, unspecified MMR IgG Measles Mumps Rubella 03/05/23 Z11.9 - Encounter for screening for infectious and parasitic diseases, unspecified Hepatitis B Surface Antibody 03/05/23 Z11.9 - Encounter for screening for infectious and parasitic diseases, unspecified Coding Level of Care Code Sports/Work/School Physical Diagnoses School physical exam Z02.0
[2023-03-04 16:00] VITALS: BP 110/72; PULSE 76; TEMP 36.6; O2SAT 100; BMI 36.2
== END 2023-03-04 16:50 | disposition home or self-care (01) ==
LOC: HO.HMGWI 15:29
DX: Z02.0 Encounter for examination for admission to educational institution (principal)
CPT/HCPCS: 99080

== ENCOUNTER 2023-03-05 10:32 | Outpatient (REF) | payer SELFPAY ==
[2023-03-06 08:15] LABS: ~Hepatitis B Surface Antibody REACTIVE (Nonreactive)
[2023-03-06 10:44] LABS: Rubella IgG Antibody 3.47 Index
[2023-03-06 12:59] LABS: Rubella IgG Antibody 3.21 Index
[2023-03-07 21:19] LABS: TS Negative Control Passed; TS Panel A 0; TS Panel B 0; TS Positive Control Passed; TSpotTB Negative (Negative)
== END 2023-03-05 10:33 | disposition home or self-care (01) ==
LOC: HO.HMGCLDS 10:32
PROVIDERS: Visit Provider Internal Medicine
DX: Z02.0 Encounter for examination for admission to educational institution (principal); Z11.9 Encounter for screening for infectious and parasitic diseases, unspecified
CPT/HCPCS: 36415; 86481; 86706; 86735; 86762; 86765; 86787